=== PATIENT | male | born 1980 | race Caucasian/White ===

== ENCOUNTER 2018-08-23 10:46 | Emergency (ER) | payer OTHER ==
[2018-08-23] MEDS ORDERED: NS 1,000 ML IV ONE (10:59)
--- NOTE | 2018-08-23 10:59 | EDPHY ---
H & P Stated Complaint: Weakness/anxiety/blurry vision Time Seen by Provider: 08/23/18 10:55 HPI/ROS: HPI: This is a 38-year-old male who presents with Chief Complaint: Weakness, anxiety, blurry vision Location: Head Quality: Blurry vision Duration: 2 days Signs and Symptoms: no fever, no nausea, no vomiting, no photophobia, no noise sensitivity, no neck stiffness, no ear pain, no tinnitus, no nasal congestion, no sinus pressure, + weakness, no radiation, no aura, + neck tremor, no rash Timing: Worsening Severity: Moderate Context: Patient presents with 2 day history generalized weakness, increased anxiety and left eye blurry vision described as "all over and feels like floating." Denies visual loss, floaters, eye pain, headache. Patient reports that he has had increased anxiety over the last several weeks and has several presentations for work due next week. He reports that he feels like he cannot hold his head up on his neck and has bilateral neck tremors that are worse on the left than the right. His brother is a chiropractor and examined his extraocular movements today and noted nystagmus. Brother sent patient to the emergency room for further evaluation. Denies any radiation, chest pain, shortness of breath, dizziness, headache, fever, visual loss, hearing loss. Patient has not eaten any food today. Patient reports that the symptoms have been occurring for the last several weeks but the bilateral vision becoming blurry was over the last 2 days. He is unable to distinguish whether it is peripheral or central. Patient reports for over the last 2 years he has had the feeling to "I need to hold my head up."Patient does take testosterone supplementation and dosing was changed last week from once a week to twice a week. Patient describes generalized weakness. Reports that when he feels anxious he is unable to turn his head to the left side and is unable to see out of his peripheral vision on the left side. This occurred this week while at dinner. Lasting only a few seconds. Modifying Factors: None Comment: ROS: A comprehensive 10 system review of systems is otherwise negative aside from elements mentioned in the history of present illness. MEDICAL/SURGICAL/SOCIAL HISTORY: Medical history: Generally healthy. Does not take any regular medications. Surgical history: Denies Social history: Denies tobacco, alcohol, drug use. . Family history noncontributory. CONSTITUTIONAL: Well-developed, well-nourished middle-aged white male, significant other at bedside, awake and alert, no obvious distress HEENT: Atraumatic and normocephalic, PERRL, EOMI. Nares patent; no rhinorrhea; no nasal mucosal edema. Tympanic membranes clear. Oropharynx clear, no exudate and dry oral mucosa. Airway patent. No lymphadenopathy. No temporal area tenderness. NECK: supple, no midline tenderness, flexion 45 degrees, extension 45 degrees, right and left lateral flexion 45 degrees. No meningismus. No Carotid bruits. Cardiovascular: Normal S1/S2, regular rate, regular rhythm, without murmur rub or gallop. PULMONARY/CHEST: Symmetrical and nontender. Clear to auscultation bilaterally. Good air movement. No accessory muscle usage. ABDOMEN: Soft, nondistended, nontender, no rebound, no guarding, no peritoneal signs, no masses or organomegaly. No CVAT. EXTREMITIES: 2/2 pulses, strength 5/5, no deformities, no clubbing, no cyanosis or edema. NEUROLOGICAL: no focal neuro deficits. GCS 15. Cranial nerves 2-12 grossly intact. Bobbing of neck back and forth tremulous activity noted. Normal Romberg testing. Normal [id number] testing. Normal xlft-ga-[id number] testing. Speech normal. Ambulatory without any deficits. SKIN: Warm and dry, no erythema. no rash. Good capillary refill. Source: Patient, Family Exam Limitations: No limitations - Personal History Current Tetanus/Diphtheria Vaccine: Unsure - Medical/Surgical History Hx Asthma: No Hx Chronic Respiratory Disease: No Hx Diabetes: No Hx Cardiac Disease: No Hx Renal Disease: No Hx Cirrhosis: No Hx Alcoholism: No Other PMH: Denies - Social History Smoking Status: Never smoked Constitutional: Initial Vital Signs Temperature (C) 36.6 C 08/23/18 10:49 Heart Rate 71 08/23/18 10:49 Respiratory Rate 18 08/23/18 10:49 Blood Pressure 152/110 H 08/23/18 10:49 O2 Sat (%) 96 08/23/18 10:49 O2 Delivery Mode Room Air Allergies/Adverse Reactions: No Known Allergies Allergy (Unverified 08/23/18 10:51) Home Medications: Medication Instructions Recorded NK [No Known Home Meds] 08/23/18 Medical Decision Making - Diagnostics Imaging Results: Imaging Impressions Head CT 08/23/18 10:59 Impression: Noncontrast head CT within normal limits. Final concordant results called to Ruby Culver at 12:14 PM. General information for patients regarding this examination can be found at [email or web address]. If you have questions or comments about this report, please contact me at (hospital) or [phone] (cell). Head CTA 08/23/18 10:59 Impression: Normal.. 2. CT Angiography of the Neck (With Contrast), 11:46 AM Clinical Indications: Tremors, headache, vision changes and weakness Technique: During IV administration of 85 mL of Isovue-370 intravenously, helical multidetector data acquisition was obtained from the upper thorax cephalad through the skull base. The thinly collimated data were manipulated in multiple projections on the 3D computer workstation by the radiologist. Dose reduction techniques were utilized. Findings: The common carotid arteries, carotid bifurcations and both internal and external carotid arteries are widely patent. Both vertebral arteries codominant and widely patent into the basilar artery. No evidence of dissection , occlusion, hemodynamically significant stenosis, or ulceration. Impression: Normal. Final concordant results discussed with Ruby Culver at 12:25 PM. Note: All stenoses are calculated using NASCET Criteria. General information for patients regarding this examination can be found at [email or web address]. If you have questions or comments about this report, please contact me at [phone](hospital) or [phone] (cell). Neck CTA 08/23/18 10:59 Impression: Normal.. 2. CT Angiography of the Neck (With Contrast), 11:46 AM Clinical Indications: Tremors, headache, vision changes and weakness Technique: During IV administration of 85 mL of Isovue-370 intravenously, helical multidetector data acquisition was obtained from the upper thorax cephalad through the skull base. The thinly collimated data were manipulated in multiple projections on the 3D computer workstation by the radiologist. Dose reduction techniques were utilized. Findings: The common carotid arteries, carotid bifurcations and both internal and external carotid arteries are widely patent. Both vertebral arteries codominant and widely patent into the basilar artery. No evidence of dissection , occlusion, hemodynamically significant stenosis, or ulceration. Impression: Normal. Final concordant results discussed with Ruby Culver at 12:25 PM. Note: All stenoses are calculated using NASCET Criteria. General information for patients regarding this examination can be found at [email or web address]. If you have questions or comments about this report, please contact me at [phone](hospital) or [phone] (cell). ED Course/Re-evaluation: Vital signs reviewed and shows elevated blood pressure. IV access, laboratory studies, head CT scan, CT angio head, CT angio neck ordered NIHSS=0 Patient given 1 L normal saline 1110: Visual acuity equals left 20/25, right 2014, bilateral 20/20. RN reports that patient complaining of left blurry vision. This is different from him tell me it is bilateral. 1215: Called by Dr. Ricardo, CT head scan shows no acute intracranial process. 1220: Called by Dr. Ricardo, CT angio head and neck are completely unremarkable. Reassessed patient who reports complete relief of symptoms. He believes that this is anxiety related. I recommend to the patient admission to the hospital for further testing for consideration of amaurosis fugax. Patient politely declined knowing the risks of stroke and sudden . He has an appointment with primary care provider next week and Neurology on Monday. Blood pressure improved at discharge. This patient was seen under the supervision of my secondary supervising physician. I evaluated care for this patient with attending. Differential Diagnosis: Dizziness including but not limited to peripheral and central causes of vertigo , orthostatic causes including dehydration, and blood loss. Weakness including but not limited to electrolyte abnormality, depression, anxiety, CVA, spinal cord abnormality, and infectious causes. - Data Points Laboratory Results: Laboratory Results 08/23/18 11:05 08/23/18 11:05 08/23/18 08/23/18 08/23/18 11:09 11:05 11:05 WBC 5.97 10^3/uL 10^3/uL (3.80-9.50) RBC 5.72 10^6/uL 10^6/uL (4.40-6.38) Hgb 17.5 g/dL g/dL (13.7-17.5) POC Hgb 18.0 gm/dL H gm/dL (13.7-17.5) Hct 52.6 % H % (40.0-51.0) POC Hct 53 % H % (40-51) MCV 92.0 fL fL (81.5-99.8) MCH 30.6 pg pg (27.9-34.1) MCHC 33.3 g/dL g/dL (32.4-36.7) RDW 13.6 % % (11.5-15.2) Plt Count 190 10^3/uL 10^3/uL (150-400) MPV 9.4 fL fL (8.7-11.7) Neut % (Auto) 63.4 % % (39.3-74.2) Lymph % (Auto) 26.6 % % (15.0-45.0) Falls % (Auto) 7.5 % % (4.5-13.0) Eos % (Auto) 1.7 % % (0.6-7.6) Baso % (Auto) 0.3 % % (0.3-1.7) Nucleat RBC Rel Count 0.0 % % (0.0-0.2) Absolute Neuts (auto) 3.78 10^3/uL 10^3/uL (1.70-6.50) Absolute Lymphs (auto) 1.59 10^3/uL 10^3/uL (1.00-3.00) Absolute Monos (auto) 0.45 10^3/uL 10^3/uL (0.30-0.80) Absolute Eos (auto) 0.10 10^3/uL 10^3/uL (0.03-0.40) Absolute Basos (auto) 0.02 10^3/uL 10^3/uL (0.02-0.10) Absolute Nucleated RBC 0.00 10^3/uL 10^3/uL (0-0.01) Immature Gran % 0.5 % % (0.0-1.1) Immature Gran # 0.03 10^3/uL 10^3/uL (0.00-0.10) ESR < 1 MM/HR MM/HR (0-15) POC Sodium 144 mEq/L mEq/L (135-145) Sodium 140 mEq/L mEq/L (135-145) POC Potassium 4.2 mEq/L mEq/L (3.3-5.0) Potassium 4.5 mEq/L mEq/L (3.5-5.2) POC Chloride 105 mEq/L mEq/L (97-110) Chloride 105 mEq/L mEq/L (97-110) Carbon Dioxide 26 mEq/l mEq/l (22-31) POC Total CO2 24 mEq/L mEq/L (22-31) Anion Gap 9 mEq/L mEq/L (6-14) POC BUN 10 mg/dL mg/dL (7-23) BUN 12 mg/dL mg/dL (7-23) Creatinine 0.9 mg/dL mg/dL (0.7-1.3) POC Creatinine 0.9 mg/dL mg/dL (0.7-1.3) Estimated GFR > 60 Glucose 105 mg/dL H mg/dL (70-100) POC Glucose 110 mg/dL H mg/dL (70-100) Calcium 9.2 mg/dL mg/dL (8.5-10.4) Magnesium 2.1 mg/dL mg/dL (1.6-2.3) Total Bilirubin 0.8 mg/dL mg/dL (0.1-1.4) Conjugated Bilirubin 0.4 mg/dL mg/dL (0.0-0.5) Unconjugated Bilirubin 0.4 mg/dL mg/dL (0.0-1.1) AST 34 IU/L IU/L (17-59) ALT 40 IU/L IU/L (21-72) Alkaline Phosphatase 57 IU/L IU/L (38-126) C-Reactive Protein < 5.0 mg/L mg/L (<10.0) Total Protein 7.3 g/dL g/dL (6.3-8.2) Albumin 4.4 g/dL g/dL (3.5-5.0) Medications Given: Discontinued Medications Sodium Chloride (Ns) 1,000 mls @ 0 mls/hr IV ONCE ONE; Wide Open PRN Reason: Protocol Stop: 08/23/18 11:00 Last Admin: 08/23/18 11:20 Dose: 1,000 mls Point of Care Test Results: Chemistry 08/23/18 11:09 POC Sodium 144 mEq/L mEq/L (135-145) POC Potassium 4.2 mEq/L mEq/L (3.3-5.0) POC Chloride 105 mEq/L mEq/L (97-110) POC Total CO2 24 mEq/L mEq/L (22-31) POC BUN 10 mg/dL mg/dL (7-23) POC Creatinine 0.9 mg/dL mg/dL (0.7-1.3) POC Glucose 110 mg/dL H mg/dL (70-100) ISTAT H&H 08/23/18 11:09 POC Hgb 18.0 gm/dL H gm/dL (13.7-17.5) POC Hct 53 % H % (40-51) Departure - Departure Disposition: Home, Routine, Self-Care Clinical Impression: Generalized anxiety disorder Condition: Good Instructions: Generalized Anxiety Disorder (ED) Additional Instructions: Please reduce stress as much as possible. Follow-up with primary care provider to discuss generalized anxiety disorder and pharmacological interventions. Follow-up with Neurology on Monday. Please make follow-up appointment with Ophthalmology next week. Return to the ER immediately if you have progressive headaches, neurologic deficits, gait abnormality, visual disturbance, slurred speech, or any other symptom that concerns you. Referrals: SHADY KENYON [Other] - As per Instructions Jean-Pierre Georges MD [[facility] [place] Primary Care Provider] - As per Instructions
[2018-08-23 11:21] LABS: PLATELET COUNT 190 10^3/uL (150-400)
[2018-08-23] MEDS ORDERED: IOPAMIDOL (ISOVUE-370) 150 ML BTL IV ONE (11:34)
[2018-08-23 12:53] VITALS: BP 116/68
== END 2018-08-23 12:51 | disposition home or self-care (01) ==
DX: F41.9 Anxiety disorder, unspecified (principal); H53.8 Other visual disturbances; R53.1 Weakness; E86.9 Volume depletion, unspecified
CPT/HCPCS: 82435-PO; 82565-PO; 82947-PO; 84132-PO; 84295-PO; 84520-PO; 85014-ER; Q9967